=== PATIENT | female | born 1940 | race Caucasian/White ===

== ENCOUNTER → 2018-08-26 | Outpatient (CLI) | payer MEDICARE, OTHER ==
[~2018-08-26] MED LIST: B&C/1TAB2 PO; CALC-1171 PO; CHOL10005 PO; CLO5 PO; CLON-331 PO; CYAN25004 PO; DOXE10CA25 PO; DUL20 PO; ESTR10TA4 VG; ESTR42.59 VG; LACT1CAP6 PO; LEVO50TA89 PO; LEVO75TA76 PO; MAGN400C PO; MULT-865 PO; NITR-105 PO; PREG25 PO; THYR30TA21 PO; THYR60TA25 PO; UBID100C48 PO; VITA40TA PO; [UNRECOGNIZED DRUG - CODE] PO; [UNRECOGNIZED DRUG - CODE] PO
--- NOTE | 2018-08-26 14:26 | RADIOLOGY IMAGING REPORT ---
FACILITY: [facility] [place] PATIENT NAME: DAVID MCKINNEY : [id number] MR: [id number] V: [id number] EXAM DATE: ORDERING PHYSICIAN: DAWIT DOSS TECHNOLOGIST: Judy Blair PROCEDURE:BILATERAL DIGITAL SCREENING MAMMOGRAM WITH CAD ASSISTED INTERPRETATION & 3D TOMOSYNTHESIS COMPARISON:Prior mammograms 07/01/2017, 05/23/2016, 04/15/2015. INDICATIONS:SCREENING FINDINGS: The breast tissue demonstrates scattered fibroglandular densities. There is no dominant mass or suspicious microcalcifications in either breast. DIAGNOSTIC CATEGORY 1--NEGATIVE. RECOMMENDATIONS: ROUTINE MAMMOGRAM AND CLINICAL EVALUATION IN 1 YR. IMPRESSION: BIRADS 1: Negative. Dictated by: Calderon Coffey M.D. on 08/26/2018 at 14:16 Transcribed by: REJI on 08/26/2018 at 14:22 Approved by: Calderon Coffey M.D. on 08/26/2018 at 14:25 [facility]
== END ==
LOC: MAMO 00:48
PROVIDERS: ATTEND Nurse Practitioner Psychiatric/Mental Health
DX: Z12.31 Encounter for screening mammogram for malignant neoplasm of breast (principal)
CPT/HCPCS: 77063; 77067